=== PATIENT | female | born 1990 | race Hispanic/Latino ===

== ENCOUNTER 2020-01-07 04:13 | Emergency (ER) | payer OTHER, SELFPAY ==
[2020-01-07] MEDS ORDERED: IBUPROFEN 600 MG TABLET ONE (04:54)
== END 2020-01-07 05:09 | disposition home or self-care (01) ==
LOC: EDH 04:13
DX: B34.9 Viral infection, unspecified (principal); Z20.828 Contact with and (suspected) exposure to other viral communicable diseases; Z88.8 Allergy status to other drugs, medicaments and biological substances